=== PATIENT | male | born 1970 | race Caucasian/White ===

== ENCOUNTER 2025-01-11 16:27 | Emergency (ER) | payer BC ==
[~2025-01-11] VITALS: Ht 182.9 cm; Wt 119.5 kg
[2025-01-11] MEDS ORDERED: RIME75TA (16:43)
[2025-01-11] MEDS ORDERED: VALS160T3 (16:43)
[2025-01-11] MEDS ORDERED: SEMA2.4P (16:43)
[2025-01-11] MEDS ORDERED: AMLO1TAB24 (16:43)
[2025-01-11] MEDS ORDERED: DEXL30CA6 (16:43)
[2025-01-11 16:49] LABS: BASO # 0.1 10^3/uL (0.0-0.2); BASO % 0.6 % (0.0-1.0); EOS # 0.1 10^3/uL (0.0-0.5); EOS % 1.0 % (0.0-3.0); LYMPH # 3.5 10^3/uL (1.5-5.0); LYMPH % 30.9 % (24.0-44.0); MONO # 0.8 10^3/uL (0.0-0.8); MONO % 7.0 % (2.0-8.0); NEUTROPHILS # 6.9 10^3/uL (1.5-8.5); NEUTROPHILS % 60.1 % (36.0-66.0); PLATELET COUNT, AUTOMATED 335 10^3/uL (150-450)
[2025-01-11] MEDS: NS (Normal Saline) 0.9% 1,000 ML IV ONE (16:56)
[2025-01-11 17:18] LABS: CK-MB VALUE MASS 1.7 NG/ML (<3.6); ETHYL ALCOHOL (ETHANOL) < 0.003 % (0.000-0.010)
[2025-01-11 17:20] LABS: CALCIUM LEVEL 9.6 MG/DL (8.5-10.1); CARBON DIOXIDE LEVEL 26 MMOL/L (20-31); CHLORIDE LEVEL 104 MMOL/L (98-107); CREATININE FOR GFR 1.00 MG/DL (0.70-1.30); GLOMERULAR FILTRATION RATE 90.0 (>56); MAGNESIUM LEVEL 2.0 MG/DL (1.8-2.4); POTASSIUM SERUM 3.7 MMOL/L (3.5-5.1); SODIUM LEVEL 142 MMOL/L (136-145)
[2025-01-11 17:22] LABS: FREE T4 1.30 NG/DL (0.89-1.76)
[2025-01-11 17:26] LABS: CPK CREATINE PHOSPHOKINASE 115 U/L (46-171); MB/CK RELATIVE INDEX 1.47 (< OR =4)
[2025-01-11 18:13] LABS: CK-MB VALUE MASS 1.4 NG/ML (<3.6)
[2025-01-11 18:14] LABS: CPK CREATINE PHOSPHOKINASE 89 U/L (46-171); MB/CK RELATIVE INDEX 1.57 (< OR =4)
[2025-01-11 18:58] VITALS: BP 137/73; TEMP 97.1; O2SAT 99
== END 2025-01-11 19:02 | disposition home or self-care (01) ==
LOC: M ED 16:27
DX: I95.1 Orthostatic hypotension (principal); I10 Essential (primary) hypertension; F17.200 Nicotine dependence, unspecified, uncomplicated; Z79.899 Other long term (current) drug therapy